=== PATIENT | female | born 1995 | race Caucasian/White ===

== ENCOUNTER 2019-11-24 04:10 | Emergency (ER) | payer OTHER ==
[~2019-11-24] VITALS: Ht 167.6 cm; Wt 68.0 kg
[2019-11-24 04:15] VITALS: BP 114/69
--- NOTE | 2019-11-24 04:15 | NUR ---
PT TAKEN TO CHAIR C
--- NOTE | 2019-11-24 04:25 | NUR ---
PT ASSESSMENT COMPLETED BY DAXA CONTE, NO NURSING INTERVENTION NEEDED AT THIS TIME.
[2019-11-24 04:38] VITALS: BP 114/69
--- NOTE | 2019-11-24 04:38 | NUR ---
Patient discharged with v/s stable. Written and verbal after care instructions given and explained. Patient verbalized understanding. Ambulatory with steady gait , in custody by [facility]. All questions addressed prior to discharge. Advised to follow up with PMD.
== END 2019-11-24 04:38 ==
LOC: MED 04:10
DX: S00.12XA Contusion of left eyelid and periocular area, initial encounter (principal); F10.129 Alcohol abuse with intoxication, unspecified; V49.9XXA Car occupant (driver) (passenger) injured in unspecified traffic accident, initial encounter; Y93.89 Activity, other specified; Y92.89 Other specified places as the place of occurrence of the external cause; Y99.8 Other external cause status; Y90.9 Presence of alcohol in blood, level not specified
CPT/HCPCS: 99283